=== PATIENT | male | born 1950 | race Caucasian/White ===

== ENCOUNTER 2020-12-05 18:36 | Observation (INO) ==
[2020-12-06] MEDS ORDERED: Acetaminophen 325 MG TABLET PO PRN (03:21)
[2020-12-06] MEDS ORDERED: Ondansetron ODT 4 MG TAB.RAPDIS SL PRN (03:21)
[2020-12-06] MEDS ORDERED: Naloxone 0.4 MG/ML INJ IVP PRN (03:21)
[2020-12-06] MEDS ORDERED: Perflutren Lipid Microsphere 1.3 ML in 0.9 % Sodium Chloride 8.7 ML IVP PRN (03:23)
[2020-12-06] MEDS ORDERED: Ipratropium/Albuterol Neb 3 ML IH PRN (03:23)
[2020-12-06 04:52] LABS: Bilirubin,Urine Negative (Negative); Blood,Urine Negative (Negative); Clarity,Urine Clear (Clear); Color,Urine Light-Yellow (Yellow); Glucose,Urine (UA) Normal (Normal); Ketones,Urine 10 mg/dL (Negative); Leukocyte Esterase,Urine Negative (Negative); Mucus,Urine Few per lpf (None-Few); Nitrite,Urine Negative (Negative); Protein,Urine 30 mg/dL (Neg-Trace); RBC,Urine 0-3 per hpf (0-3); Specific Gravity,Urine 1.016 (1.010-1.025); Squamous Epithelial Cell,Urine Few per hpf (None-Few); Urobilinogen,Urine Normal (Normal); WBC,Urine 0-3 per hpf (0-3)
[2020-12-06 05:04] LABS: Basophils # 0.1 K/mcL (0.0-0.2); Basophils % 0.5 %; Eosinophils # 0.4 K/mcL (0.0-0.6); Eosinophils % 3.5 %; Hematocrit 40.1 % (37.5-50.1); Hemoglobin 13.7 g/dL (12.9-16.9); Immature Granulocytes % 0.5 % (0-4); Lymphocytes % 19.7 %; Mean Corpuscular HGB Conc 34.2 g/dL (31.6-35.5); Mean Corpuscular Hemoglobin 29.3 pg (28.0-33.3); Mean Corpuscular Volume 85.9 fL (83.0-100.0); Mean Platelet Volume 11.1 fL (9.4-12.4); Monocytes # 0.8 K/mcL (0.0-1.3); Monocytes % 7.9 %; Neutrophils # 6.9 K/mcL (1.6-8.9); Platelet Count 231 K/mcL (140-400); Red Blood Count 4.67 M/mcL (4.19-5.50); Red Cell Distribution Width 13.5 % (11.5-14.5); Segmented Neutrophils % 67.9 %; White Blood Count 10.1 K/mcL (4.3-11.1)
[2020-12-06 05:12] LABS: INR 1.2; Prothrombin Time 13.5 Seconds (9.4-12.1)
[2020-12-06 05:18] LABS: Alanine Aminotransferase 15 Units/L (7-52); Albumin 4.1 g/dL (3.5-5.7); Albumin/Globulin Ratio 1.5 (1.1-2.2); Alkaline Phosphatase 80 Units/L (34-104); Aspartate Amino Transferase 13 Units/L (13-39); BUN/Creatinine Ratio 16 (6-26); Bilirubin,Total 1.4 mg/dL (0.3-1.0); Blood Urea Nitrogen 16 mg/dL (8-23); Calcium 9.1 mg/dL (8.6-10.3); Carbon Dioxide 24 mEq/L (23-29); Chloride 106 mEq/L (98-107); Cholesterol 159 mg/dL (< 200); Globulin 2.8 g/dL (2.4-3.5); Glucose 92 mg/dL (70-105); HDL Cholesterol 32 mg/dL (40-59); LDL Cholesterol,Calculated 101 mg/dL (< 100); Magnesium 2.1 mg/dL (1.6-2.6); Osmolality,Calculated 287 (280-300); Phosphorous 2.4 mg/dL (2.7-4.5); Potassium 3.7 mEq/L (3.5-5.1); Sodium 138 mEq/L (136-145); Total Protein 6.9 g/dL (6.4-8.9); Triglycerides 132 mg/dL (< 150); eGFR For African Americans > 60 (> 60); eGFR For Non-African Americans > 60 (> 60)
[2020-12-06] MEDS ORDERED: Regadenoson 0.4 MG/5 ML SYRINGE IVP ONE (10:58)
[2020-12-06] MEDS: Aspirin Enteric Coated 81 MG Tablet PO SCH (11:29)
[2020-12-06] MEDS: NIFEdipine XL (24 HR) 30 MG TAB.ER.24 PO SCH (11:30)
[2020-12-06] MEDS: Gabapentin 400 MG CAPSULE PO SCH ×2 (16:07→19:50)
[2020-12-06] MEDS: Baclofen 10 MG TABLET PO SCH (19:50)
[2020-12-06] MEDS: Metoprolol 100 MG TABLET PO SCH (19:50)
[2020-12-07 03:08] LABS: Hematocrit 39.6 % (37.5-50.1); Hemoglobin 13.3 g/dL (12.9-16.9); Mean Corpuscular HGB Conc 33.6 g/dL (31.6-35.5); Mean Corpuscular Hemoglobin 28.9 pg (28.0-33.3); Mean Corpuscular Volume 86.1 fL (83.0-100.0); Mean Platelet Volume 11.3 fL (9.4-12.4); Platelet Count 192 K/mcL (140-400); Red Cell Distribution Width 13.4 % (11.5-14.5); White Blood Count 8.7 K/mcL (4.3-11.1)
[2020-12-07] MEDS ORDERED: Finasteride 5 MG TABLET PO SCH (09:00)
[2020-12-07] MEDS ORDERED: (Linaclotide [Linzess] 290 MCG Capsule) PO SCH (09:00)
[2020-12-07] MEDS ORDERED: *HR* LORazepam 2 MG/ML VIAL IVP ONE (09:10)
[2020-12-07] MEDS ORDERED: Regadenoson 0.4 MG/5 ML SYRINGE IVP ONE (09:14)
[2020-12-07] MEDS: NIFEdipine XL (24 HR) 30 MG TAB.ER.24 PO SCH (11:03)
[2020-12-07] MEDS: Aspirin Enteric Coated 81 MG Tablet PO SCH (11:03)
[2020-12-07] MEDS: Baclofen 10 MG TABLET PO SCH (11:03)
[2020-12-07] MEDS: Gabapentin 400 MG CAPSULE PO SCH ×2 (11:03→12:30)
[2020-12-07] MEDS: Metoprolol 100 MG TABLET PO SCH (11:03)
[2020-12-07 11:20] VITALS: PULSE 61; TEMP 98; O2SAT 94
[2020-12-07 11:43] LABS: Alanine Aminotransferase 15 Units/L (7-52); Albumin 4.3 g/dL (3.5-5.7); Albumin/Globulin Ratio 1.5 (1.1-2.2); Alkaline Phosphatase 85 Units/L (34-104); Aspartate Amino Transferase 14 Units/L (13-39); BUN/Creatinine Ratio 14 (6-26); Bilirubin,Total 1.3 mg/dL (0.3-1.0); Blood Urea Nitrogen 16 mg/dL (8-23); Calcium 9.3 mg/dL (8.6-10.3); Carbon Dioxide 23 mEq/L (23-29); Chloride 104 mEq/L (98-107); Globulin 2.8 g/dL (2.4-3.5); Glucose 114 mg/dL (70-105); Osmolality,Calculated 284 (280-300); Potassium 3.5 mEq/L (3.5-5.1); Sodium 136 mEq/L (136-145); Total Protein 7.1 g/dL (6.4-8.9); eGFR For African Americans > 60 (> 60); eGFR For Non-African Americans > 60 (> 60)
[2020-12-07 14:21] VITALS: BP 103/57
[2020-12-07] MEDS ORDERED: NIFEdipine XL (24 HR) 30 MG TAB.ER.24 PO SCH (21:00)
== END 2020-12-07 15:24 | disposition home or self-care (01) ==
LOC: 3BNU → SUATTDRO 12-06 02:41
PROVIDERS: ADMIT Internal Medicine; ATTEND Nurse Practitioner